=== PATIENT | female | born 1990 | race Caucasian/White ===

== ENCOUNTER 2020-07-07 16:41 | Observation (INO) | payer OTHER ==
[~2020-07-07] VITALS: Ht 166.4 cm; Wt 91.4 kg
[2020-07-07] VITALS (8 sets, daily range): BP systolic 107–130; BP diastolic 53–88; Ht 166.4 cm; Wt 91.4 kg
--- NOTE | ~2020-07-07 | OP ---
PATIENT NAME: DOREEN BURRELL MEDICAL RECORD: [id number] :91 LOCATION:[id number] ADMISSION DATE:07/07/20 SURGEON: LIZANDRO BELLO MD DATE OF OPERATION: 07/07/2020 DATE OF SERVICE: 07/07/2020 PREOPERATIVE DIAGNOSES: 1. Subacute pelvic pain. 2. Ovarian mass. POSTOPERATIVE DIAGNOSES: 1. Subacute pelvic pain. 2. Ovarian mass. PROCEDURES PERFORMED: 1. Diagnostic laparoscopy. 2. Right cystectomy. SURGEON: Lizandro Bello MD HEMMER CHAINSTITCH: Charles Ornelas DO ANESTHESIA: General. ANESTHESIOLOGIST: Dr. Szymanski. ORGANIZATIONAL CONSULTANT: Earlene Robles. FINDINGS: A 10-12 cm cyst of the right ovary torsed approximately 180 degrees. Left ovary and both tubes were unremarkable as well as the uterus. SPECIMEN REMOVED: Ovarian capsule with cyst wall. SPECIMEN DISPOSITION: Pathology. ESTIMATED BLOOD LOSS: Less than or equal to 100 mL. FLUIDS: 1600 mL of lactated Ringer's. URINE OUTPUT: 200 mL of clear urine. COMPLICATIONS: None. DRAINS: None. INDICATIONS: The patient is a 29-year-old female with gradually worsening pelvic pain over the last several weeks. The pain became acute within the last 24 hours. The patient presents to clinic today for evaluation of what has been found to have a large mass. The patient was consented for diagnostic laparoscopy and any indicated procedure. DESCRIPTION OF PROCEDURE: After informed consent was assured, the patient was taken to the operating room where anesthetic was obtained. The patient was now prepped and draped and an incision was made at the umbilicus to accommodate a OPERATIVE REPORT [id number] DOREEN BURRELL 5-mm trocar. With the patient supine on the table, it was now placed in a Trendelenburg position and accessory ports were now placed in the lower quadrants. Through the right lower quadrant, grasper was inserted and the right hilum of the ovary was identified and held fast. Coagulation cutter was inserted and the capsule incised. A clear fluid was noted and this was suctioned free. The portion of the capsule was now removed and the cyst wall was pulled free using graspers. After cauterization of the bleeding vessels, the pelvis was irrigated and irrigant removed. Interceed was now placed over the operative field after it was made hemostatic. Sponge, lap, and needle counts correct as the pneumoperitoneum was released from the accessory trocars and the ports were removed. Primary port was removed after release of the total pneumoperitoneum and all skin sites were closed with a subcuticular stitch. TRANSINT:[id number] Voice Confirmation ID: [id number] DOCUMENT ID: [id number] LIZANDRO BELLO MD CC: [id number] DICTATION DATE: 07/29/20 1120 CARBON ACCOUNTANT: 07/29/20 1434 DIS IN 07/08/20 [facility] [address] [id number]
[2020-07-07 12:34] LABS: HCG URINE NEGATIVE (NEGATIVE)
[2020-07-07 13:08] LABS: HEMATOCRIT 38.2 % (36.0-48.0); HEMOGLOBIN 13.2 g/dL (12-16); MCH 29.5 pg (26.0-34.0); MCHC 34.6 g/dL (31.0-37.0); MCV 85.3 fL (80.0-100.0); MEAN PLATELET VOLUME 8.7 fL (7.4-10.4); NEUTROPHILS 80.7 % (40-80); PLATELET COUNT 295 10x3/uL (130-400); RBC 4.48 10x6/uL (4.00-5.40); WBC 8.2 10x3/uL (4.8-10.8)
[~2020-07-07 16:41] MED LIST: BREO ELLIPTA 11 EACH INH
--- NOTE | 2020-07-07 16:54 | NUR ---
PT RECEIVED FROM PACU VIA BED TO ROOM 1278, TRANSFERS SELF LATERALLY FROM BED TO BED. VSS, SEE FLOWSHEET FOR DOC. PT DENIES PAIN. LR INFUSING ORDERED TO RIGHT FOREARM PIV. IV IS C/D/I. 4 LAP INCISIONS TO ABD ARE C/D/I WITH DERMABOND. PERALTA CATH DRAINING CLEAR YELLOW URINE TO BEDSIDE DRAINAGE. STAT LOCK TO INNER RIGHT THIGH. SCD'S ON AND PLACED ON PUMP. PT ASKING WHEN SHE CAN EAT. WILL NOTIFY .
--- NOTE | 2020-07-07 17:05 | NUR ---
DR BELLO TO PT ROOM DISCUSSING PROCEDURE AND POST-OP CARE. MED ORDERS RECEIVED, STATES HE WILL PLACED THEM IN [facility]. GIVES ORDER FOR NO TORADOL AT THIS TIME AND HEMOGRAM AT 0400 TOMORROW MORNING.
--- NOTE | 2020-07-07 17:23 | NUR ---
NEW BAG LR UP AT 150ML/H, SEE EMAR
--- NOTE | 2020-07-07 17:24 | NUR ---
PT ADMIN DILAUDID ORDERED PRN PAIN FOR ABD PAIN RATED 6/10, SEE EMAR FOR DOC.
--- NOTE | 2020-07-07 17:27 | NUR ---
ZOFRAN ADMIN ORDERED PRN FOR NAUSEA, SEE EMAR FOR DOC.
--- NOTE | 2020-07-07 17:45 | NUR ---
PT VERBALIZES SOME RELIEF FROM PAIN, REQUESTS JUICE AND CRACKERS. PROVIDED REQUESTED AND ENCOURAGED TO SIP SLOWLY. UNDERSTANDING VERBALIZED. COUGHING AND DEEP BREATHING TEACHING DONE. SRUx2, CL IN REACH.
--- NOTE | 2020-07-07 18:25 | NUR ---
PT C/O WORSENING PAIN, REQUESTING TO HAVE ANOTHER DOSE OF DILAUDID DISCUSSED WITH DR BELLO. 1MG ONE TIME DOSE ORDERED, SEE EMAR FOR DOC.
--- NOTE | 2020-07-07 18:50 | NUR ---
PT CALLS OUT STATING HER INCISION IS OOZING. SLIGHT SEROSANGUINOUS DRAINAGE NOTED FROM LOWER MIDLINE INCISION AND RIGHT INCISION. CLEANED AND GAUZE PRESSURE DRESSING PLACED OVER INCISIONS. SCANT SMEAR OF VAGINAL BLEEDING NOTED. PERIPAD PLACED. 50ML CLEAR YELLOW URINE EMPTIED FROM UROMETER. SRUx2, CL IN REACH.
--- NOTE | 2020-07-07 19:00 | NUR ---
REC'D PT AA&O X 4 LYING TO LEFT TILT. PAIN ASSESSED. PT REPORTS PAIN 4/10. NO REQUEST FOR FURTHER PAIN INTERVENTIONS AT THIS TIME. PM SHIFT POC AND PAIN MEDICATION DISCUSSED W/PT. PT VERBALIZES UNDERSTANDING AND AGREEABLE. SHIFT ASSESSMENT COMPLETED. SEE FLOWSHEET. CHOCOLATE PUDDING AND LIP MOISTURIZER PROVIDED PER PT REQUEST. PT CURRENTLY HAS A FULLY LARGE CUP OF ICE WATER AT BEDSIDE. PT ENCOURAGED TO DRINK MUCH POSSIBLE. PT AWAITING RE TURN OF SIG OTHER. DENIES FURTHER NEEDS AT THIS TIME.
--- NOTE | 2020-07-07 19:00 | NUR ---
REPORT TO PM SHIFT.
--- NOTE | 2020-07-07 20:00 | NUR ---
ROUNDS MADE. PT REMAINS AWAKE, POSITIONED TO LEFT SIDE. PAIN ASSESSED. PT REPORTS PAIN 5/10, BUT STATES "I DON'T WANT ANYTHING FOR IT RIGHT NOW." APPROX 50ML URINE NOTED IN UROMETER AND DUMPED. SEE FLOWSHEET. FRESH ICE WATER SERVED AND WARM WASHCLOTH PROVIDED PER PT REQUEST. NO FURTHER NEEDS. SCD WRAPS REMAIN IN PLACE, CONNECTED TO PUMP. PUMP IS ON AND FUNCTIONING.
--- NOTE | 2020-07-07 20:50 | NUR ---
PT RINGS CALL LIGHT. THIS RN TO BEDSIDE. PT IS REQUESTING EITHER BROTH OR CHICKEN NOODLE SOUP. REPORTING UNABLE TO EAT THE SANDWHICH SIG OTHER. CHICKEN NOODLE SOUP SERVED. PT ALSO REQUESTING ZOFRAN AND PAIN MEDICATION WHEN SHE CAN HAVE IT. SOUP SERVED. PT INFORMED MEDS WITH BE BROUGHT PROMPTLY.
--- NOTE | 2020-07-07 21:12 | NUR ---
ZOFRAN 4MG SIVP GIVEN FOLLOWED BY 1MG DILAUDID SIVP GIVEN. SEE EMAR. PT RATES PAIN 12/10 AT THIS TIME. DENIES FURTHER NEEDS. APPROX 75ML URINE NOTED IN UROMETER AND DUMPED.
--- NOTE | 2020-07-07 22:00 | NUR ---
ROUNDS MADE. PT REMAINS TO LEFT SIDE FOR COMFORT. AWAKE. PAIN REASSESSED. PT REPORTS PAIN 3/10 WHEN LYING STILL. NO FURTHER PAIN INTERVENTIONS REQUESTED AT THIS TIME. FRESH ICE WATER SERVED. APPROX 50ML URINE NOTED IN UROMETER AND DUMPED. BED LOW, SIDE RAILS UP X 2. CALL LIGHT AT PT'S SIDE. SCD WRAPS REMAIN IN PLACE, CONNECTED TO PUMP. PUMP IS ON AND FUNCTIONING.
--- NOTE | 2020-07-08 | NUR ---
ROUNDS MADE FOR VITAL SIGNS. PT AWAKE IN BED. PAIN AND NEEDS ASSESSED. PT REPORTS PAIN 5/10. NO REQUEST FOR PAIN INTEVENTIONS AT THIS TIME. NEXT TIME PAIN MEDICATION REVIEWED W/PT. PT AGREEABLE. DENIES NEEDS AT THIS TIME.
[2020-07-08 00:05] VITALS: BP 107/55
--- NOTE | 2020-07-08 01:30 | NUR ---
RN TO BEDSIDE TO OFFER IV PAIN MEDICATION, UPON ENTERING THE ROOM, PT IS POSITIONED IN LOW ARANGO'S W/EYES CLOSED. RESP EVEN AND UNLABORED. AFTER SEVERAL MINUTES OF OBSEVATION, PT DOES NOT OPEN EYES AND APPEARS TO BE UNAWARE OF RN' ENTRY T O ROOM. THEREFORE, PT LEFT UNDISTURBED. WILL CONTINUE TO MONITOR. APPROX 50ML URINE NOTED IN UROMETER, BUT NOT DUMPED AT THIS TIME.
--- NOTE | 2020-07-08 02:30 | NUR ---
IV PUMP SOUNDING. RN TO BEDSIDE. PT AWAKE NOW. IV PUMP SILENCED. PT'S PAIN ASSESSED. PT REPORTS PAIN /10. PAIN MEDICATION AND ZOFRAN OFFERED. PT ACCEPTS. SEE EMAR. APPROX 250ML URINE NOTED IN UROMETER AND DUMPED. SEE I&O. PT DENIES FURTHER NEEDS AT THIS TIME.
--- NOTE | 2020-07-08 04:37 | NUR ---
ROUNDS MADE. PT RESTING W/EYES CLOSED IN LOW ARANGO'S. RESP EVEN AND UNLABORED. PT LEFT UNDISTURBED. 350ML URINE NOTED IN UROMETER. NOT DUMPED AT THIS TIME.
--- NOTE | 2020-07-08 05:45 | NUR ---
DR BELLO CALLS THE LD UNIT. REQUEST UPDATE REPORT ON PT. REPORT GIVEN THAT PT HAS DONE WELL AND URINE OUTPUT HAS BEEN MORE THAN ADEQUATE. ORDERS REC'D TO DISCONTINUE FABIAN THIS AM AND PLANS TO ROUND EARLY THIS AM.
--- NOTE | 2020-07-08 06:20 | NUR ---
RN TO BEDSIDE. PAIN ASSESSED. PT RATES PAIN 12/10. PT INFORMED DR BELLO HAS CALLED AND GIVEN ORDERS TO D/C PERALTA. 350ML URINE NOTED IN UROMETER AND DUMPED. TOTAL OF 2300ML EMPTIED FROM BAG. PERALTA D/C'D INTACT. P TOLERATED WELL. IV PUMP TURNED OFF. PT SERVED 1 CUP LOLA. PUDDING, FRESH CUP OF ICE AND ADMIN 1 TAB PERCOCET 5. REQUEST SCD WRAPS OFF FOR COMFORT. SCD WRAPS REMOVED AN PUMP OFF.
[2020-07-08 07:02] LABS: HEMATOCRIT 31.9 % (36.0-48.0); HEMOGLOBIN 10.7 g/dL (12-16); MCH 28.9 pg (26.0-34.0); MCHC 33.5 g/dL (31.0-37.0); MCV 86.2 fL (80.0-100.0); MEAN PLATELET VOLUME 8.6 fL (7.4-10.4); RBC 3.7 10x6/uL (4.00-5.40)
[2020-07-08 07:05] LABS: WBC 11.8 10x3/uL (4.8-10.8)
[2020-07-08 07:35] VITALS: BP 124/69
--- NOTE | 2020-07-08 08:10 | NUR ---
DR. ROCHA IN ROOM SPEAKING WITH PT. PT HAS HYPOACTIVE BOWEL SOUNDS IN LOWER RIGHT QUADRANT, ABSENT IN OTHER 3. REPORTED TO MD. CONTINUE C/O PAIN TO GENERAL ABDOMEN REPORTED TO DR. ROCHA, VERBAL ORDER RECEIVED TO ADMINISTER TORADOL NOW, AND MD WILL START SOME GAS X. ABDOMEN PALP SOFT, MILDLY DISTENDED, WITH AIR PERCUSSED JUST OVER UMBILICAL AREA ONLY. DR. Hernandez CONTINUES TO BE IN ROOM. LUNG SOUNDS CTA BILAT. SRUP X2, CL/PHONE WITHIN REACH.
[2020-07-08 09:58] LABS: BASOPHILS 0.1 % (0-2); EOSINOPHILS 0 % (0-7); HEMATOCRIT 31.6 % (36.0-48.0); HEMOGLOBIN 10.8 g/dL (12-16); IMMATURE GRANULOCYTES 0.2 % (0-5); LYMPHOCYTE ABS# 1.92 10x3/uL (1.18-3.74); LYMPHOCYTES 15.8 % (15-50); MCH 29.1 pg (26.0-34.0); MCHC 34.2 g/dL (31.0-37.0); MCV 85.2 fL (80.0-100.0); MEAN PLATELET VOLUME 8.5 fL (7.4-10.4); MONOCYTES 8.1 % (2-11); NEUTROPHIL ABS# 9.23 10x3/uL (1.56-6.13); NEUTROPHILS 75.8 % (40-80); PLATELET COUNT 245 10x3/uL (130-400); RBC 3.71 10x6/uL (4.00-5.40); RDW 12.1 % (11.5-14.5); WBC 12.2 10x3/uL (4.8-10.8)
--- NOTE | 2020-07-08 10:15 | NUR ---
TO PT'S ROOM, PT IS RESTING QUIETLY ON HER LEFT SIDE. PT REPORTS "I KNOW THE PAIN ISN'T GOING TO GO AWAY COMLETELY, BUT IT DOES STILL HURT". RATING PAIN 4/10 TO GENERALIZED ABDOMINAL AREA.
--- NOTE | 2020-07-08 12:25 | NUR ---
repeat lab results called to dr. marissa md will round on pt when she finishes clinic.
--- NOTE | 2020-07-08 12:53 | NUR ---
dr. ann to room to speak with pt.
--- NOTE | 2020-07-08 13:30 | NUR ---
to room, sl dc'd with cath intact. discharge instructions explained to pt, pt denies questions. copies of d/c instructions and prescriptions given to pt.
--- NOTE | 2020-07-08 13:45 | NUR ---
pt taken out by wheelchair, in stable condition, with sig other assisting with personal items.
== END 2020-07-08 15:00 | disposition home or self-care (01) ==
LOC: D.OPS 16:41 → D.LD 16:42 → OBSVTIME 16:42 → D.LD 07-08 14:50
PROVIDERS: Obstetrics & Gynecology; ADMIT Obstetrics & Gynecology; ATTEND Obstetrics & Gynecology
DX: N83.201 Unspecified ovarian cyst, right side (principal)